=== PATIENT | male | born 1965 | race Caucasian/White ===

== ENCOUNTER 2021-12-12 09:05 | Outpatient (CLI) | payer OTHER, SELFPAY ==
--- NOTE | 2021-12-12 09:15 | MR_ITS ---
[address] [address] Phone:?[phone] Fax:?[phone] Referring Physician Information: Manuel Davis M.D. [address] [facility] [address] Phone:?[phone] Fax:?[phone] Patient:Sarah Nielson D.O.B:?1965 Sex:?Male Phone:?[phone] [facility] MRN:?[id number] Exam Date:?12/12/2021 ? EXAM: MRI of the RIGHT KNEE, without contrast CLINICAL: Unspecified symptoms involving the right knee. COMPARISONS: None available. TECHNICAL: MR sequences of the right knee: sagittals: PD, PDFS coronals: PD, T2FS axials: PD, PDFS SEDATION: None. CONTRAST: None. FINDINGS: Ligaments: ACL: Intact ACL anteromedial and posterolateral bundles, without sprain or tear. PCL: Intact PCL, without acute or chronic injury. MCL: Intact MCL superficial and deep layers, without injury. LCL: Intact LCL, without injury. Posterolateral corner: Popliteus, biceps femoris, iliotibial band, and the popliteofibular ligament appear intact. Posteromedial corner: Semimembranosus, pes anserine tendons and posterior oblique ligament appear intact. Extensor mechanism: Patellar tendon: Intact, without tendinopathy. Quadriceps tendon: Intact, without tendinopathy. Retinacula: Medial and lateral retinacula are intact. Fat pads: Unremarkable infrapatellar Hoffa's, quadriceps and prefemoral fat pads. Patellofemoral joint: Patella: Segment of full-thickness chondral loss involves the superior patellar median ridge measuring approximately 8 mm in transverse dimension as seen on axial series 4 image 9. Deep chondral fissuring and delamination also involves the patellar median ridge. Trochlea: Focal deep chondral fissure involving the inferior trochlea cartilage on sagittal series 6 image 13 with trace underlying subchondral reactive marrow edema. Medial compartment: Medial meniscus: Horizontal tearing involves the free edge of the posterior horn on sagittal series 6 image 20-23. Remainder of the medial meniscus appears intact. Medial cartilage: High-grade chondral loss involves the posterior weightbearing medial femoral condyle adjacent to the posterior horn medial meniscus on sagittal series 6 image 21-22. Focal deep chondral fissure involving the posterior nonweightbearing medial femoral condyle on sagittal series 6 image 23 with adjacent subchondral reactive edema. Lateral compartment: Lateral meniscus: No evidence of discrete meniscal tear or meniscal displacement. Lateral cartilage: Small segment of grade 2-3 chondral loss involves the posterior lateral tibial plateau underlying the posterior horn lateral meniscus on sagittal series 6 images 9-10. Heterogeneity and mild surface irregularity involving the remainder of the lateral tibial plateau cartilage. Knee joint: Effusion: Small to moderate right knee effusion. Intra-articular bodies:?Intra-articular body within the anterior intercondylar notch measuring approximately 16 mm in transverse dimension as seen on axial series 4 images 21-22 and sagittal series 6 image 15-18. Popliteal cyst: None. Bones: There is minimal marrow edema involving the peripheral medial tibial plateau adjacent to the medial meniscus, with question of a tiny subchondral fracture involving the peripheral medial tibial plateau on coronal series 7 images 22-23. No convincing osseous fracture site is identified. IMPRESSION: 1. Tearing of the medial meniscus as above. 2. Minimal marrow edema involving the peripheral medial tibial plateau adjacent to the medial meniscus with question of a tiny subchondral fracture involving the peripheral medial tibial plateau. 3. Tricompartmental chondromalacia/chondral loss as above. 4. Small to moderate joint effusion with an approximately 16 mm intra-articular body within the anterior intercondylar notch. JCZ Electronically signed on 12/12/2021 3:10:00 PM by Jean Pierre Ross D.O.
== END 2021-12-12 09:06 | disposition home or self-care (01) ==
LOC: MRI 09:06
PROVIDERS: PCP Family Medicine; Visit Provider Orthopaedic Surgery Sports Medicine
DX: M25.561 Pain in right knee (principal); S83.241A Other tear of medial meniscus, current injury, right knee, initial encounter; M94.261 Chondromalacia, right knee; M25.461 Effusion, right knee
CPT/HCPCS: 73721

== ENCOUNTER 2022-04-19 07:57 | Day surgery (SDC) | payer OTHER, SELFPAY ==
[2022-04-19] VITALS (13 sets, daily range): BP systolic 100–131; BP diastolic 64–89; PULSE 47–55; RESP 16; TEMP 36.1–36.7; O2SAT 96–100; BMI 28.2
--- NOTE | 2022-04-19 08:15 | SUR.PREOP ---
patient did home covid test on 04/18 and took a picture of the results. I visualized picture and noted 1 line indicating a negative test result.
[2022-04-19] MEDS: SODIUM CHLORIDE 0.9 % (FLUSH) 10 ML SYRINGE IVF (08:34)
[2022-04-19] MEDS: LACTATED RINGERS 1000 ML 1,000 ML 100 ML IV (08:34)
[2022-04-19] MEDS: CEFAZOLIN 2 GM in 0.9 % SODIUM CHLORIDE Mini-bag 100 ML IVPB (09:30)
--- NOTE | 2022-04-19 09:47 | W.ANESCHARGE ---
Anesthesia Charges Start Date/Time Anesthesia Start Date: 04/19/22 Anesthesia Start Time: 09:15 Stop Date/Time Anesthesia Stop Date: 04/19/22 Anesthesia Stop Time: 10:27 Summary Emergency: No
--- NOTE | 2022-04-19 10:08 | P.ORPRC_ITS ---
Procedure Note Date of procedure: 04/19/22 Procedure: PREOPERATIVE DIAGNOSIS: 1. Right knee medial meniscus tear POSTOPERATIVE DIAGNOSIS: 1. Right knee medial meniscus tear 2. 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 Right knee arthroscopic partial medial menisectomy 2. Right knee arthroscopic chondroplasty patellofemoral compartment SURGEON: Manuel Davis M.D. ROLLER MECHANIC: KANDY Amanda. Of note, an healthcare administrative assistant was critical for this case to aid in patient positioning, knee manipulation, instrument exchange, and closure. ANESTHESIA: Spinal EBL: 2ml TOURNIQUET: 30 min at 300 torr COMPLICATIONS: None evident INDICATIONS: The patient is a pleasant 56-year-old male who has experienced right knee pain particularly with any twisting or turning. Physical exam was concerning for medial meniscus tear, this was confirmed on MRI. Additionally, attempted nonoperative management has been tried, and failed. Thus, surgery was recommended. FINDINGS: Grade 3-4 chondromalacia patellofemoral compartment including patella median ridge and trochlear groove. The trochlear groove did have loose chondral flaps and likely was the source of the small loose body seen within the intercondylar notch. This loose chondral fragment was excised. Complex tear posterior horn medial meniscus. The posterior root remained intact. The midbody and anterior horn also were intact. Grade 3 chondromalacia 8-10 mm region weight-bearing portion medial femoral condyle centrally. Lateral compartment showed healthy articular cartilage and intact lateral meniscus. ACL and PCL were intact robust. DESCRIPTION OF PROCEDURE: After a thorough discussion of risks, benefits, and alternatives, the patient was brought to the operating room and placed upon the operating table. Induction of anesthesia was undertaken as previously noted. 2g iv Ancef was administered within 1 hr of incision preoperatively. Appropriate time-out was performed identifying proper patient, site, and procedure. The right lower extremity was prepped and draped in the appropriate sterile fashion using ChloraPrep. The limb was exsanguinated and tourniquet inflated. Anterolateral and anteromedial portals were established with an 11 blade, and a diagnostic arthroscopy was performed. This identified the findings as noted above. Following the diagnostic arthroscopy, a partial medial menisectomy was performed with the combination of basket forceps and a motorized shaver. Following this, the meniscus was re-probed and found to be stable. Approximately 15 % of the overall meniscus required resection. The torpedo shaver was also utilized for removal of the loose body intercondylar notch (this was a small loose body measuring approximately 6 mm in greatest dimension). The, showed basket forceps, [place] cautery, and torpedo shaver were also utilized for chondroplasty of the loose chondral flaps trochlear groove. At this stage, the shaver was reinserted into the suprapatellar pouch and all remaining meniscal debris was evacuated. Instruments were removed, excess fluid was drained, and closure performed with 4-0 Monocryl with Steri-Strips. Dressings were applied, the tourniquet deflated, and the patient was awoken from anesthesia and transferred to the PACU in stable condition. PLAN: 1. Weightbear as tolerated operative extremity. Crutch / walker ambulation assistance PRN. 2. Ice, acetominophen and/or ibuprofen, and Percocet for pain as needed. 3. Knee range of motion and quad sets/straight leg raise regularly 4. Follow up with PA visit in 1-2 weeks for a wound check and possibly to [facility] physical therapy.
[2022-04-19] MEDS: ROPIVACAINE 0.5% 30 ML 150 MG INJECTION (10:13)
--- NOTE | 2022-04-19 10:37 | W.ANESCHARGE ---
Anesthesia Charges Start Date/Time Anesthesia Start Date: 04/19/22 Anesthesia Start Time: 09:15 Stop Date/Time Anesthesia Stop Date: 04/19/22 Anesthesia Stop Time: 10:27 Summary Emergency: No
== END 2022-04-19 11:51 | disposition home or self-care (01) ==
PROVIDERS: PCP Family Medicine; Visit Provider Orthopaedic Surgery Sports Medicine
PROC: (CPT 29870; principal; 2022-04-19 09:15)
DX: S83.231A Complex tear of medial meniscus, current injury, right knee, initial encounter (principal); M22.41 Chondromalacia patellae, right knee; M25.561 Pain in right knee
CPT/HCPCS: 29881; 01400; J0690; J2250; J2704; J2795; J7120